=== PATIENT | male | born 1995 | race Caucasian/White ===

== ENCOUNTER 2018-02-22 20:18 | Emergency (ER) | payer OTHER ==
[~2018-02-22] VITALS: Ht 182.9 cm; Wt 90.9 kg
[2018-02-22 20:22] VITALS: TEMP 97.4
[2018-02-22 20:56] LABS: BASO % 0.4 % (0.0-2.0); EOS # 0.2 (0.0-0.7); EOS % 1.9 % (0-4.0); GRAN # 4.2 (1.4-6.5); HEMATOCRIT 39.8 % (42.0-52.0); HEMOGLOBIN 14.7 g/dl (13.5-18.0); LYMPH # 3.6 (1.2-3.4); MEAN CELL VOLUME 86 fl (80.0-100.0); MEAN CORPUSCULAR HEMOGLOBIN 32 pg (27.0-31.0); MEAN CORPUSCULAR HGB CONC 37 g/dl (33.0-37.0); MEAN PLATELET VOLUME 10.5 fl (7.4-10.4); MONO # 0.6 (0.1-0.6); MONO % 6.5 % (1.7-9.3); PLATELET COUNT 269 K/mm3 (130-400); RED BLOOD COUNT 4.62 M/mm3 (4.20-5.60); REDCELL DISTRIBUTION WIDTH-CV 11.3 % (11.5-14.5)
[2018-02-22 21:06] LABS: COLLECTION METHOD CLEAN CATCH
[2018-02-22 21:07] LABS: ALBUMIN 4.8 gm/dL (3.5-5.0); BILIRUBIN,TOTAL 1.1 mg/dL (0.0-1.0); CALCIUM 9.8 mg/dL (8.4-10.2); CREATININE, serum 1.23 mg/dL (0.66-1.25); POTASSIUM 3.4 mmol/L (3.4-5.0)
[2018-02-22 21:23] LABS: MUCOUS Present /lpf; PH 5 (5-8); SQUAMOUS EPITHELIAL None Seen /hpf; URINE APPEARANCE Clear; URINE BACTERIA None Seen /hpf; URINE BILIRUBIN Negative (NEGATIVE); URINE BLOOD 3+ (NEGATIVE); URINE CALCIUM OXALATE CRYSTAL Present /hpf; URINE COLOR Yellow; URINE GLUCOSE Negative (NEGATIVE); URINE KETONE Negative (NEGATIVE); URINE LEUKOCYTE ESTERASE Negative (NEGATIVE); URINE NITRATE Negative (NEGATIVE); URINE PROTEIN(semi-quant) 2+ (NEGATIVE); URINE RBC 20-50 /hpf; URINE UROBILINOGEN Negative (NEGATIVE)
[2018-02-23] MEDS ORDERED: NORCO 325 MG-51 TAB PO (00:56)
[2018-02-23] MEDS ORDERED: ZOFRAN ODT4 MG PO (00:56)
[2018-02-23] MEDS ORDERED: FLAGYL500 MG PO (00:56)
[2018-02-23] MEDS ORDERED: CIPRO 500MG TA500 MG PO (00:56)
[2018-02-23 01:49] VITALS: BP 124/74; PULSE 94
[2018-02-24] MEDS ORDERED: FLOMAX 0.40.4 MG/CAP PO (02:30)
== END 2018-02-23 01:51 | disposition home or self-care (01) ==
LOC: COL.ER 20:18
PROVIDERS: Physician Assistant
DX: N45.1 Epididymitis (principal); A59.9 Trichomoniasis, unspecified; N20.0 Calculus of kidney
CPT/HCPCS: J0696; J2405; J3010; J7030; Q9967

== ENCOUNTER 2018-02-24 00:14 | Emergency (ER) | payer OTHER ==
[~2018-02-24] VITALS: Ht 182.9 cm; Wt 90.9 kg
[~2018-02-24 00:14] MED LIST: CIPRO 500MG TA500 MG PO; FLAGYL500 MG PO; NORCO 325 MG-51 TAB PO; ZOFRAN ODT4 MG PO
[2018-02-24 00:21] VITALS: TEMP 98.1
[2018-02-24] MEDS ORDERED: FLOMAX 0.40.4 MG/CAP PO (02:30)
[2018-02-24 03:34] VITALS: BP 118/72; PULSE 76
== END 2018-02-24 03:37 | disposition home or self-care (01) ==
LOC: COL.ER 00:14
DX: N20.1 Calculus of ureter (principal); Z87.442 Personal history of urinary calculi
CPT/HCPCS: J1885; J2405; J3010; J7030